=== PATIENT | male | born 2000 ===

== ENCOUNTER 2023-06-20 11:30 | Outpatient (CLI) | payer MEDICAID, SELFPAY | END 2023-06-20 11:31 | disposition home or self-care (01) | PROVIDERS: Visit Provider Emergency Medicine | DX: R41.82 Altered mental status, unspecified (principal) | CPT/HCPCS: A0425; A0427 ==

== ENCOUNTER 2023-06-20 11:45 | Emergency (ER) | payer MEDICAID, SELFPAY ==
[2023-06-20] VITALS (27 sets, daily range): BP systolic 107–169; BP diastolic 57–117; PULSE 48–73; RESP 6–16; TEMP 36.9; O2SAT 97–100; BMI 24.4
--- NOTE | 2023-06-20 | CRLHL7_ITS ---
For Patients: As a result of the Century Cures Act, medical imaging exams and procedure reports are released immediately into your electronic medical record. You may view this report before your referring provider. If you have questions, please contact your health care provider. INDICATION: Intubation TECHNIQUE: Single-view chest FINDINGS: The lungs are clear. The heart, mediastinum and pulmonary vessels are of normal size. There is no evidence of pleural disease. ET tube 5.5 centimeters from the alexsandra. IMPRESSION: Negative chest. Dictated by Lula Solorio MD @ 06/20/2023 1:29:09 PM (Electronically Signed)
--- NOTE | 2023-06-20 | CRLHL7_ITS ---
For Patients: As a result of the Century Cures Act, medical imaging exams and procedure reports are released immediately into your electronic medical record. You may view this report before your referring provider. If you have questions, please contact your health care provider. INDICATIONS: NG tube placement. TECHNIQUE: Portable AP chest. FINDINGS: Tip of the nasogastric to in the upper body of the stomach. Endotracheal tube in the midtrachea 4.9 cm from the alexsandra. Chest radiographs otherwise unremarkable. Dictated by Efra Harvey MD @ 06/20/2023 1:59:01 PM (Electronically Signed)
--- NOTE | 2023-06-20 12:00 | ED.NURSE ---
Pt having periodic apneic episodes, resumes snoring respirations briefly with vigorous sternal rub. MD and RT at bedside, staff preparing for intubation.
--- NOTE | 2023-06-20 12:02 | ED.NURSE ---
Pt requiring assisted ventilation with ambubag @15L O2.
[2023-06-20] MEDS: 0.9 % SODIUM CHLORIDE 1000 ml 1,000 ML 500 ML IV (12:05)
[2023-06-20] MEDS: ETOMIDATE 2 MG/ML inj 20 MG IVP (12:09)
[2023-06-20] MEDS: SUCCINYLCHOLINE 20 MG/ML INJ 125 MG IVP (12:09)
--- NOTE | 2023-06-20 12:15 | ED.NURSE ---
Intubation started by Block at 1204 hours, completed at 1212 hours. 7.5 ET tube, 25 at the teeth. On 21% FIO2. PEEP at 5, RR 16.
[2023-06-20] MEDS: KETAMINE HCL 100 MG/ML inj 75 MG IVP (12:17)
--- NOTE | 2023-06-20 12:18 | ED.NURSE ---
Imaging at bedside for ET tube placement verification.
[2023-06-20] MEDS: KETAMINE HCL 100 MG/ML inj 50 MG IVP (12:20)
--- NOTE | 2023-06-20 12:25 | CRLHL7_ITS ---
For Patients: As a result of the Century Cures Act, medical imaging exams and procedure reports are released immediately into your electronic medical record. You may view this report before your referring provider. If you have questions, please contact your health care provider. Indication: Altered LOC Technique: Noncontrast head CT Comparison: No comparison Findings: Axial noncontrast images through the brain parenchyma demonstrates no acute intracranial hemorrhage or mass. No midline shift. No abnormal extra-axial air or fluid collections are seen Fluid in the left maxillary sinus. Opacification of ethmoid air cells. Skull and scalp are otherwise unremarkable. Impression: No acute intracranial hemorrhage or mass. Please note that all CT scans at this facility use dose modulation, iterative reconstruction, and/or weight-based dosing when appropriate to reduce radiation dose to as low as reasonably achievable. Dictated by Lula Solorio MD @ 06/20/2023 2:24:17 PM (Electronically Signed)
--- NOTE | 2023-06-20 12:32 | ED.NURSE ---
NG tube placed, 75cm at the right nare. On low-intermittent suction.
[2023-06-20 12:33] LABS: Chloride* 105 mmol/L (96-114); Sodium* 142 mmol/L (135-149)
[2023-06-20] MEDS: MIDAZOLAM HCL 1 MG/ML inj 4 MG IVP (12:33)
[2023-06-20 12:34] LABS: HCO3 VBG 24 mmol/L (21-28); Lactate* 1.3 mmol/L (0.5-1.9); PCO2 VBG 45 mmHG (40-50); PO2 VBG 67.1 mmHG (25-47); Potassium* 4.1 mmol/L (3.6-5.1); pH VBG 7.341 (7.32-7.43)
[2023-06-20 12:35] LABS: Albumin* 4.8 g/dL (3.3-5.0); Basophils Percent Auto 0.5 % (0.0-3.0); Eosinophils Percent Auto 1.4 % (0.0-7.0); Hematocrit 45.9 % (37.0-53.0); Hemoglobin* 15.4 gm/dL (13.5-17.5); Mean Corpuscular HGB Conc 34 gm/dL (32-36); Mean Corpuscular Hemoglobin 29 pg (26-34); Mean Corpuscular Volume 86 fL (80-100); Monocytes Percent Auto 10.8 % (0.0-11.0); Neutrophils Percent Auto 55.3 % (42.0-72.0); Platelet Count* 309 K/uL (140-440); Red Blood Count 5.33 m/uL (4.30-5.90); White Blood Count* 4.37 K/uL (4.50-11.00)
--- NOTE | 2023-06-20 12:35 | ED_ITS ---
HPI - General Adult General Date Seen: 06/20/23 Chief complaint: Altered Mental Status Stated complaint: OD Time Seen by Provider: 06/20/23 12:17 Source: EMS Mode of arrival: EMS Limitations: altered mental status History of Present Illness HPI narrative: Patient is a 23-year-old male without reported significant past medical history aside from apparently having been seen for seizure 1 week ago, details unknown. He has reported history of opioid abuse, reportedly sober. He was at [employer] with his girlfriend this morning according to paramedics, well at that time. They had gone home. There was a period of time where he was not with his girlfriend and then she reportedly found him unresponsive in bed. He is known to use opioids rectally as his preferred route. He is not reported to be depressed or suicidal. Medics did not report any substances seen in the home but they said it was very messy and they are not sure that they would of necessarily found anything. They did note that there was marijuana on scene. They did not see any other pills or paraphernalia. He was unresponsive initially, fire gave him 4 mg of nasal Narcan which reportedly improved his level of consciousness to some degree, paramedics reported that they placed an IV and gave 2 mg of IV Narcan which improved his breathing. We were reported that his GCS was 10 en route. His blood sugar was 86 per paramedics. There was no reported trauma. He was naked in bed at the time he was found. He has not given any history or been verbal according to paramedics. Related Data Allergies Allergy/AdvReac Type Severity Reaction Status Date / Time Unable to Assess Allergy Verified 06/20/23 12:09 Review of Systems Status of ROS: Reports: unobtainable due to mental status Exam Narrative: Exam Narrative: Vital signs as noted above. In general, an obtunded thin male. Head: Normocephalic, atraumatic. Eyes: Pupils are small, do not react. Conjunctivae are somewhat injected. ENT: Mucous membranes are moist. Neck: Supple without lymphadenopathy. Heart: Bradycardic, regular. No murmur. Lungs: Bradypnea, clear. No evidence of chest trauma. Abdomen: Soft and nondistended. No evidence of trauma. Extremities: Pulses are intact. No edema, no evidence of trauma. Neurologic: Obtunded, GCS 8, semi purposeful movement of arms noted when I try to place a nasal airway. Otherwise, no response noted to painful stimuli. Affect: Not testable. Skin: Warm and dry. Well perfused. Const: Vital Signs, click to edit/add: Vital Signs - 24 hr 06/20/23 12:05 06/20/23 12:05 06/20/23 12:06 Temperature 98.4 F Pulse Rate 58 L 54 L Pulse Rate [Right Pulse Oximeter] 53 L Respiratory Rate 6 L Blood Pressure 119/73 114/57 L Blood Pressure [Ri ght Upper Arm] 107/63 Pulse Oximetry 98 100 99 Oxygen Delivery Me thod Room Air Ambu-Bag Ambu-Bag Oxygen Flow Rate 15 15 Fraction of Inspir ed Oxygen 06/20/23 12:07 06/20/23 12:10 06/20/23 12:12 Temperature Pulse Rate 52 L 56 L 57 L Pulse Rate [Right Pulse Oximeter] Respiratory Rate Blood Pressure 107/63 155/92 H Blood Pressure [Ri ght Upper Arm] Pulse Oximetry 99 100 99 Oxygen Delivery Me thod Ambu-Bag Ambu-Bag Ambu-Bag Oxygen Flow Rate 15 15 15 Fraction of Inspir ed Oxygen 06/20/23 12:15 06/20/23 12:16 06/20/23 12:17 Temperature Pulse Rate 63 56 L Pulse Rate [Right Pulse Oximeter] Respiratory Rate 12 14 Blood Pressure 155/103 H Blood Pressure [Ri ght Upper Arm] Pulse Oximetry 100 100 100 Oxygen Delivery Me thod Intubated Intubated Oxygen Flow Rate Fraction of Inspir ed Oxygen 21 21 06/20/23 12:22 Temperature Pulse Rate 57 L Pulse Rate [Right Pulse Oximeter] Respiratory Rate 16 Blood Pressure 164/107 H Blood Pressure [Ri ght Upper Arm] Pulse Oximetry 100 Oxygen Delivery Me thod Intubated Oxygen Flow Rate Fraction of Inspir ed Oxygen 21 Documenting provider has reviewed patient's vital signs: yes Course Course ED Course: Following initial arrival, we placed a 2nd IV, patient was attached to monitor, and we gave an additional 2 mg of Narcan. He did not have any response to that, but thinking that he may need larger doses we repaired to give 10 mg of Narcan. At that time, he was not responding, but was breathing well on his own. Just prior to giving the larger dose of Narcan however he had an apneic spell. This lasted perhaps 15-20 seconds. At that time, we gathered materials to prepare for intubation including Ambu bag. He did resume breathing on his own, we tried giving 6 mg of Narcan as that is all the rest of the Narcan that we had in the emergency department. He did not respond really in any way to Narcan at that time, did have a couple more brief apneic spells which we responded to with assisted breathing with the Ambu bag, but decided at that time to control his airway. Note that he did not tolerate a nasal airway, I do think he had an intact gag reflex, but simply did not have reliable airway otherwise. Procedure note: Patient was preoxygenated, positioned, equipment gathered. He was given 20 mg of etomidate, 125 mg of succinylcholine and intubated with a 7 and half tube. He tolerated this well, no complications such as hypotension or hypoxemia. Tube placement was confirmed using breath sounds, chest x-ray, end-tidal CO2. He is placed on the ventilator per RT. He is given Versed and ketamine for postprocedural sedation. An NG tube and Childers catheter were placed. Labs are pending at this time. Initial results thus far show a white count of 4.4, hemoglobin of 15.4. Venous gas shows a pH of 7.34, pCO2 45, bicarb of 24. Lactate was 1.3. Metabolic panel is unremarkable. Electrolytes are normal, blood sugar 87. LFTs notable only for mildly elevated AST of 52. UA is pending but drug screen is negative aside from marijuana, though of course our screen does not show synthetic such as fentanyl. Blood alcohol is negative, Tylenol and aspirin levels are negative. Urinalysis is still pending. Head CT is likewise pending, being done at this time. Working diagnosis is that of overdose, though I do not have laboratory confirmation and he did not have response to Narcan. I did not see anything here to suggest seizure, his response when I tried to place a nasal airway seemed inconsistent with seizure, and otherwise his presentation seems strongly suggestive of overdose to me. He is afebrile, labs do not otherwise suggest an infectious cause. Head CT by my review does not show any intracranial hemorrhage. Patient has required several doses of ketamine for sedation as he has been bucking the tube, but he has not been opening his eyes, reaching for the tube, or showing any purposeful movement, therefore I have been hesitant to extubate. I am uncertain whether his Narcan doses may have finally improved his level of alertness or whether, as with his intolerance to the nasal airway, he simply is intolerant of the ET tube. As such for now, I think it is safest to leave him on the ventilator until he can be extubated under more controlled circumstances. We were able to find an ICU bed at [place], where he has been accepted. He will be sent there by helicopter. He has remained hemodynamically stable since intubation. Critical care 60 minute Vital Signs Vital signs: Initial Vital Signs Temperature 98.4 F 06/20/23 12:05 Temperature Source Temporal Artery Scan 06/20/23 12:05 Pulse Rate 58 L 06/20/23 12:05 Pulse Rhythm Regular 06/20/23 12:05 Pulse Strength 3+ Normal 06/20/23 12:05 Respiratory Rate 6 L 06/20/23 12:05 Blood Pressure 119/73 06/20/23 12:05 Blood Pressure Mean 88 06/20/23 12:05 Blood Pressure Position Supine 06/20/23 12:05 Pulse Oximetry 98 06/20/23 12:05 Oxygen Delivery Method Room Air 06/20/23 12:05 Oxygen Flow Rate 15 06/20/23 12:05 Vital Signs Temperature 98.4 F 06/20/23 12:05 Pulse Rate 58 L 06/20/23 12:05 Respiratory Rate 6 L 06/20/23 12:05 Blood Pressure 119/73 06/20/23 12:05 Pulse Oximetry 98 06/20/23 12:05 Oxygen Delivery Method Room Air 06/20/23 12:05 Oxygen Flow Rate 15 06/20/23 12:05 Temperature 98.4 F 06/20/23 12:05 Pulse Rate 57 L 06/20/23 12:22 Respiratory Rate 16 06/20/23 12:22 Blood Pressure 164/107 H 06/20/23 12:22 Pulse Oximetry 100 06/20/23 12:22 Oxygen Delivery Method Intubated 06/20/23 12:22 Oxygen Flow Rate 15 06/20/23 12:12 Fraction of Inspired Oxygen 21 06/20/23 12:22 Medical Decision Making Lab Data Labs: Lab Results 06/20/23 06/20/23 Range/Units 12:00 Unknown WBC 4.37 L (4.50-11.00) K/uL RBC 5.33 (4.30-5.90) m/uL Hgb 15.4 (13.5-17.5) gm/dL Hct 45.9 (37.0-53.0) % MCV 86 (80-100) fL MCH 29 (26-34) pg MCHC 34 (32-36) gm/dL Plt Count 309 (140-440) K/uL Neut % (Auto) 55.3 (42.0-72.0) % Lymph % (Auto) 32.0 (20-44) % Kingfisher % (Auto) 10.8 (0.0-11.0) % Eos % (Auto) 1.4 (0.0-7.0) % Baso % (Auto) 0.5 (0.0-3.0) % Neut # (Auto) 2.40 (1.7-7.0) K/uL Lymph # (Auto) 1.40 (0.90-2.90) K/uL Kingfisher # (Auto) 0.50 (0.00-0.90) K/UL Eos # (Auto) 0.10 (0.00-0.50) K/uL Baso # (Auto) 0.00 (0.00-0.30) K/uL Abs Immat Gran (auto) 0.00 (0.00-0.30) K/uL Imm/Tot Granulo (auto) 0.0 % VBG pH 7.341 (7.32-7.43) VBG pCO2 45 (40-50) mmHG VBG pO2 67.1 H (25-47) mmHG VBG HCO3 24 (21-28) mmol/L Sodium 142 (135-149) mmol/L Potassium 4.1 (3.6-5.1) mmol/L Chloride 105 (96-114) mmol/L Carbon Dioxide 24 (20-32) mmol/L Anion Gap 13 (7-15) mEq/L BUN 13 (5-24) mg/dL Creatinine 0.7 (0.5-1.5) mg/dL Estimated Creat Clear 165.53 Estimated GFR 134 ml/min Glucose 87 (60-115) mg/dL Lactate 1.3 (0.5-1.9) mmol/L Calcium 10.1 (8.4-10.6) mg/dL Total Bilirubin 0.6 (0.1-1.5) mg/dL Direct Bilirubin 0.0 (0.0-0.5) mg/dL AST 52 H (12-35) U/L ALT 17 (4-50) U/L Alkaline Phosphatase 38 L (40-150) U/L Total Protein 7.7 (6.0-8.3) g/dL Albumin 4.8 (3.3-5.0) g/dL Urine Color Yellow (Yellow) Urine Appearance Clear (Clear) Urine pH 6.0 (5.0-8.5) Ur Specific Leander 1.015 (1.000-1.030) Urine Protein Negative (Negative) Urine Glucose (UA) Negative (Negative) Urine Ketones Negative (Negative) Urine Blood Negative (Negative) Urine Nitrite Negative (Negative) Urine Bilirubin Negative (Negative) Urine Urobilinogen 0.2 (0.2-1.0) Ur Leukocyte Esterase Negative (Negative) Urine RBC 0-2 (0-2) Urine WBC 0-2 (0-5) Ur Squamous Epith Cells None (None-Few) Amorphous Sediment Few A (None) Urine Bacteria None (None) Salicylates < 1.0 L (1.0-10) mg/dL Urine Opiates Screen Negative (Negative) Ur Oxycodone Screen Negative (Negative) Urine Methadone Screen Negative (Negative) Ur Propoxyphene Screen Negative (Negative) Acetaminophen < 10.0 L (10.0-30.0) ug/mL Ur Barbiturates Screen Negative (Negative) U Tricyclic Antidepress Negative (Negative) Ur Phencyclidine Scrn Negative (Negative) Ur Amphetamines Screen Negative (Negative) U Methamphetamines Scrn Negative (Negative) U Benzodiazepines Scrn Negative (Negative) Urine Cocaine Screen Negative (Negative) U Marijuana (THC) Screen POSITIVE A (Negative) Ur Drug Screen Comment See Note Ethyl Alcohol < 0.01 L (0.01-0.03) % Discharge Plan Discharge Follow Up/Referrals: Provider,Not a Local [Primary Care Provider] -
[2023-06-20 12:36] LABS: Creatinine* 0.7 mg/dL (0.5-1.5); Est. Creatinine Clearance* 165.53; Estimated Glomerular Filt Rate 134 ml/min; Slide Review Reflex No
[2023-06-20 12:37] LABS: Anion Gap 13 mEq/L (7-15); Bilirubin Total* 0.6 mg/dL (0.1-1.5); Blood Urea Nitrogen* 13 mg/dL (5-24); Calcium* 10.1 mg/dL (8.4-10.6); Carbon Dioxide* 24 mmol/L (20-32); Glucose* 87 mg/dL (60-115); Total Protein* 7.7 g/dL (6.0-8.3)
[2023-06-20 12:37] LABS: Appearance Urine Clear (Clear); Bilirubin Urine Negative (Negative); Blood Urine Negative (Negative); Color Urine Yellow (Yellow); Glucose Urine Negative (Negative); Ketones Urine Negative (Negative); Leukocyte Esterase Urine Negative (Negative); Nitrite Urine Negative (Negative); Protein Urine Negative (Negative); Specific Gravity Urine 1.015 (1.000-1.030); Urobilinogen Urine 0.2 (0.2-1.0)
[2023-06-20 12:38] LABS: Alanine Aminotransferase* 17 U/L (4-50); Alkaline Phosphatase* 38 U/L (40-150); Aspartate Amino Transferase* 52 U/L (12-35)
[2023-06-20 12:43] LABS: Amphetamine Screen Urine Negative (Negative); Barbiturate Screen Urine Negative (Negative); Benzodiazepines Screen Urine Negative (Negative); Cannabinoid Screen Urine POSITIVE (Negative); Cocaine Screen Urine Negative (Negative); Methadone Screen Urine Negative (Negative); Methamphetamines Screen Urine Negative (Negative); Opiate Screen Urine Negative (Negative); Oxycodone Screen Urine Negative (Negative); Phencyclidine Screen Urine Negative (Negative); Tricyclic Antidepressant Urine Negative (Negative)
[2023-06-20 12:47] LABS: Acetaminophen* < 10.0 ug/mL (10.0-30.0)
[2023-06-20 12:48] LABS: Ethanol* < 0.01 % (0.01-0.03); Salicylate* < 1.0 mg/dL (1.0-10)
[2023-06-20 12:57] LABS: RBC Urine 0-2 (0-2); WBC Urine 0-2 (0-5)
[2023-06-20 12:58] LABS: Amorphous Sediment Urine Few
[2023-06-20] MEDS: GLYCOPYRROLATE 0.2 MG/ML INJ IVP (13:14)
[2023-06-20] MEDS: KETAMINE HCL 100 MG/ML inj IVP (13:14)
--- NOTE | 2023-06-20 13:59 | ED.NURSE ---
Pt left with flight crew at 1350. Report was called to [place] RN. Paperwork completed and meds charted. Family is aware of arrival at [facility] and girlfriend Francisca who was present in ER is following flight crew on ground and left approx 15 min ago.
== END 2023-06-20 13:50 | disposition other institution (70) ==
LOC: ED 12:49
PROVIDERS: Emergency Provider Emergency Medicine
DX: R41.82 Altered mental status, unspecified (principal); T50.901A Poisoning by unspecified drugs, medicaments and biological substances, accidental (unintentional), initial encounter
CPT/HCPCS: 31500; 36415; 70450; 71045; 80048; 80076; 80143; 80179; 80306; 81001; 82077; 82803; 83605; 85025; 93005; 94761; 99285; 99291; G0390; J0330; J2250; J3490; J7030